=== PATIENT | female | born 1945 | race Caucasian/White ===

== ENCOUNTER → 2024-07-05 | Outpatient (CLI) | payer MEDICARE, SELFPAY ==
--- NOTE | 2024-07-05 13:50 | ECHOD_ITS ---
Reason For Study Reason For Study: HTN Procedure This was a 2D Doppler, Color Flow transthoracic echocardiogram. Exam performed in department. Left Ventricle Normal LV size. Left ventricular systolic function is normal. The left ventricular ejection fraction is 60 %. Stage 1 diastolic dysfunction. Right Ventricle Normal RV size. Normal systolic function. Atria Normal left atrium. Normal right atrium. Mitral Valve Normal mitral valve. Tricuspid Valve Normal tricuspid valve. Mild tricuspid valve insufficiency. Pulmonary artery systolic pressure is 23 mmHg. Aortic Valve Trisinus/trileaflet aortic valve. Mild (1+) eccentric aortic valve insufficiency. Great Vessels The sinus of valsalva is mildly dilated. Moderately dilated aortic root. The pulmonary artery is normal size. Inferior vena cava collapse with sniff. MMode/2D Measurements & Calculations LVIDd: 4.1 cm IVSd: 1.1 cm Ao root diam: 4.8 cm LVIDs: 2.9 cm LVPWd: 1.0 cm RVDd: 3.7 cm FS: 29.2 % LAV(MOD-bp): 33.5 ml SV(MOD-sp4): 45.9 ml LVAd ap4: 26.1 cm2 LAV(MOD-bp) Indexed: 20.3 ml/m2 LVLd ap4: 7.2 cm SI(MOD-sp4): 27.7 ml/m2 LAV(MOD-sp2): 44.0 ml EDV(MOD-sp4): 76.5 ml LAV(MOD-sp4): 16.9 ml EDV(sp4-el): 80.0 ml LVAs ap4: 14.5 cm2 LVLs ap4: 5.9 cm ESV(MOD-sp4): 30.6 ml ESV(sp4-el): 30.2 ml EF(MOD-sp4): 60.0 % EF(sp4-el): 62.3 % SV(sp4-el): 49.8 ml LA dimension(2D): 3.2 cm LA A4 area: 8.7 cm2 TAPSE: 2.5 cm RA A4 area: 11.0 cm2 Time Measurements MV dec time: 0.23 sec Doppler Measurements & Calculations MV E max eduardo: 43.1 cm/sec Lat Peak E' Eduardo: 9.0 cm/sec Med Peak E' Eduardo: 4.4 cm/sec MV A max eduardo: 65.4 cm/sec E/E' lat: 4.8 E/E' med: 9.7 MV E/A: 0.66 Ao V2 max: 133.9 cm/sec LV V1 max: 84.9 cm/sec MV dec slope: 186.2 cm/sec2 Ao max P.2 mmHg LV V1 max P.9 mmHg Ao V2 mean: 106.8 cm/sec Ao mean P.8 mmHg Ao V2 VTI: 29.6 cm PA V2 max: 77.5 cm/sec TR max eduardo: 223.6 cm/sec TR max P.0 mmHg ECHO/Echo Complete Interpretation Summary Normal LV size. Left ventricular systolic function is normal. The left ventricular ejection fraction is 60 %. Stage 1 diastolic dysfunction. Moderately dilated aortic root. Ordering Physician: David Beckford Referring Physician: Ana Pepper Performed By: Giselle Escalante, BRITNI, RVT
== END | disposition home or self-care (01) ==
LOC: CVS 13:49
PROVIDERS: PCP Registered Nurse; Referring Provider Internal Medicine Cardiovascular Disease; Visit Provider Internal Medicine Cardiovascular Disease
DX: R94.31 Abnormal electrocardiogram [ECG] [EKG] (principal)
CPT/HCPCS: 93306